=== PATIENT | male | born 1950 | race Caucasian/White ===

== ENCOUNTER 2018-05-11 16:51 | Emergency (ER) | payer MEDICARE ==
[~2018-05-11] VITALS: Ht 185.4 cm; Wt 117.9 kg
[2018-05-11 17:07] LABS: BASOPHILS ABSOLUTE AUTO 0.06 K/mm3 (0.00-0.23); BASOPHILS PERCENT AUTO 1 % (0-2); EOSINOPHILS PERCENT AUTO 0 % (0-6); Hematocrit 48.1 % (37.0-53.0); Hemoglobin 15.8 g/dL (13.5-17.5); IMMATURE GRAN ABSOLUTE AUTO 0.01 K/mm3 (0.00-0.10); IMMATURE GRAN PERCENT AUTO 0 % (0-1); LYMPHOCYTES ABSOLUTE AUTO 1.98 K/mm3 (0.84-5.20); LYMPHOCYTES PERCENT AUTO 27 % (21-46); MONOCYTES ABSOLUTE AUTO 0.79 K/mm3 (0.16-1.47); MONOCYTES PERCENT AUTO 11 % (4-13); Mean Corpuscular HGB 30.9 pg (26.0-34.0); Mean Corpuscular HGB Conc 32.8 g/dL (31.5-36.5); Mean Corpuscular Volume 94 fL (80-100); Mean Platelet Volume 11.7 fL (9.1-12.4); NEUTROPHILS ABSOLUTE AUTO 4.48 K/mm3 (1.96-9.15); NEUTROPHILS PERCENT AUTO 61 % (41-73); Platelet Count 190 K/mm3 (150-400); RDW Coefficient Variation 13.7 % (11.7-14.2); RDW Standard Deviation 47.3 fL (35.1-46.3); Red Blood Cell Count 5.12 M/mm3 (4.30-5.90); White Blood Cell Count 7.32 K/mm3 (4.00-11.30)
[2018-05-11 17:26] LABS: Alanine Aminotransfer (ALT/SGP 46 U/L (12-78); Albumin, Blood 4.1 g/dL (3.4-5.0); Alk Phos 58 U/L (50-136); Anion Gap 6 mmol/L (6-16); Aspartate Aminotrans (AST/SGOT 31 U/L (12-37); Bilirubin, Total 1.1 mg/dL (0.1-1.0); Blood Urea Nitrogen 17 mg/dL (8-24); CO2, Blood 26 mmol/L (21-32); Calcium, Blood 9.5 mg/dL (8.5-10.1); Chloride, Blood 109 mmol/L (98-108); Creatinine, Blood 1.13 mg/dL (0.60-1.20); Glomerular Filtration Rate >60 (60-); Glucose, Blood 95 mg/dL (70-99); Potassium, Blood 4.3 mmol/L (3.5-5.5); Sodium, Blood 141 mmol/L (136-145); Total Protein, Blood 8.1 g/dL (6.4-8.2)
[2018-05-11 17:35] LABS: Calcium, Ionized (POC) 1.15 mmol/L (1.10-1.46); Chloride (POC) 109 mmol/L (98-108); Glucose (ISTAT POC) 93 mg/dL (70-99); Hemoglobin (POC) 14.3 g/dL (13.5-17.5); Potassium (POC) 4.2 mmol/L (3.5-5.5); Sodium (POC) 144 mmol/L (135-148); Total CO2 (POC) 24 mmol/L (21-32)
[2018-05-11] MEDS ORDERED: BELBUCA600 MCG PO (17:40)
[2018-05-11] MEDS ORDERED: Oxycodone HCl20 M1 PO (17:44)
[2018-05-11] MEDS ORDERED: METO50ER PO (17:44)
[2018-05-11] MEDS ORDERED: Janumet 50-1,01 EACH PO (17:44)
[2018-05-11] MEDS ORDERED: TAMS.4ER PO (17:45)
[2018-05-11] MEDS ORDERED: ALBU90OI61 (17:45)
[2018-05-11] MEDS ORDERED: PROCHAMBER1 EACH (17:45)
== END 2018-05-11 19:48 | disposition home or self-care (01) ==
LOC: ER 16:51
PROVIDERS: Emergency Medicine; Internal Medicine
DX: I48.2 Chronic atrial fibrillation (principal); F11.23 Opioid dependence with withdrawal; Z91.14 Patient's other noncompliance with medication regimen; I10 Essential (primary) hypertension; E11.9 Type 2 diabetes mellitus without complications; Z79.899 Other long term (current) drug therapy; Z79.51 Long term (current) use of inhaled steroids; Z86.711 Personal history of pulmonary embolism; Z86.718 Personal history of other venous thrombosis and embolism
CPT/HCPCS: 71045; 71260; 80047; 80053; 83880; 84484; 85014; 85025; 93005; 93010; 96374; 99284-25; J1170; Q9967

== ENCOUNTER 2018-08-29 18:18 | Emergency (ER) | payer MEDICARE ==
[~2018-08-29] VITALS: Ht 180.3 cm; Wt 117.9 kg
[~2018-08-29 18:18] MED LIST: ALBU90OI61; BELBUCA600 MCG PO; Janumet 50-1,01 EACH PO; METO50ER PO; Oxycodone HCl20 M1 PO; PROCHAMBER1 EACH; TAMS.4ER PO
== END 2018-08-29 20:08 | disposition home or self-care (01) ==
LOC: ER 18:18
DX: S09.90XA Unspecified injury of head, initial encounter (principal); S20.211A Contusion of right front wall of thorax, initial encounter; I10 Essential (primary) hypertension; E11.9 Type 2 diabetes mellitus without complications; I48.91 Unspecified atrial fibrillation; Z87.891 Personal history of nicotine dependence; Z79.899 Other long term (current) drug therapy; W18.30XA Fall on same level, unspecified, initial encounter
CPT/HCPCS: 70450; 71101; 93005; 93010; 99284-25

== ENCOUNTER 2018-09-20 13:28 | Emergency (ER) | payer MEDICARE ==
[~2018-09-20] VITALS: Ht 182.9 cm; Wt 125.2 kg
[2018-09-20 14:33] LABS: BASOPHILS ABSOLUTE AUTO 0.04 K/mm3 (0.00-0.23); BASOPHILS PERCENT AUTO 1 % (0-2); EOSINOPHILS PERCENT AUTO 0 % (0-6); Hematocrit 42.4 % (37.0-53.0); Hemoglobin 13.6 g/dL (13.5-17.5); IMMATURE GRAN ABSOLUTE AUTO 0.02 K/mm3 (0.00-0.10); IMMATURE GRAN PERCENT AUTO 0 % (0-1); LYMPHOCYTES ABSOLUTE AUTO 1.61 K/mm3 (0.84-5.20); LYMPHOCYTES PERCENT AUTO 23 % (21-46); MONOCYTES ABSOLUTE AUTO 0.76 K/mm3 (0.16-1.47); MONOCYTES PERCENT AUTO 11 % (4-13); Mean Corpuscular HGB 30.6 pg (26.0-34.0); Mean Corpuscular HGB Conc 32.1 g/dL (31.5-36.5); Mean Corpuscular Volume 96 fL (80-100); Mean Platelet Volume 11.5 fL (9.1-12.4); NEUTROPHILS ABSOLUTE AUTO 4.65 K/mm3 (1.96-9.15); NEUTROPHILS PERCENT AUTO 66 % (41-73); Platelet Count 206 K/mm3 (150-400); RDW Coefficient Variation 15.9 % (11.7-14.2); RDW Standard Deviation 55.5 fL (35.1-46.3); Red Blood Cell Count 4.44 M/mm3 (4.30-5.90); White Blood Cell Count 7.08 K/mm3 (4.00-11.30)
[2018-09-20 14:46] LABS: Alanine Aminotransfer (ALT/SGP 31 U/L (12-78); Albumin, Blood 3.3 g/dL (3.4-5.0); Albumin/Globulin Ratio 0.9 (0.8-1.8); Alk Phos 75 U/L (50-136); Anion Gap 6 mmol/L (6-16); Aspartate Aminotrans (AST/SGOT 20 U/L (12-37); Bilirubin, Total 0.8 mg/dL (0.1-1.0); Blood Urea Nitrogen 26 mg/dL (8-24); Bun/Creatinine Ratio 25.2 (12.0-20.0); CO2, Blood 28 mmol/L (21-32); Calcium, Blood 8.5 mg/dL (8.5-10.1); Chloride, Blood 103 mmol/L (98-108); Creatinine, Blood 1.03 mg/dL (0.60-1.20); Globulin, Blood 3.6 g/dL (2.2-4.0); Glomerular Filtration Rate >60 (60-); Glucose, Blood 98 mg/dL (70-99); Potassium, Blood 4.5 mmol/L (3.5-5.5); Sodium, Blood 137 mmol/L (136-145); Total Protein, Blood 6.9 g/dL (6.4-8.2); Troponin I <0.015 ng/mL (0.000-0.040)
[2018-09-20] MEDS ORDERED: DULO60 PO (14:56)
[2018-09-20] MEDS ORDERED: XARELTO20 MG PO (14:57)
[2018-09-20] MEDS ORDERED: LISI5 PO (14:58)
[2018-09-20] MEDS ORDERED: BUPRENORPHINE HC8 MG SL (14:59)
[2018-09-20] MEDS ORDERED: XARELTO15 MG PO (17:34)
[2018-09-20] MEDS ORDERED: Ultram50 MG PO (17:34)
== END 2018-09-20 17:43 | disposition home or self-care (01) ==
LOC: ER 13:28
PROVIDERS: Emergency Medicine
DX: S22.43XA Multiple fractures of ribs, bilateral, initial encounter for closed fracture (principal); I26.99 Other pulmonary embolism without acute cor pulmonale; I48.91 Unspecified atrial fibrillation; Z87.891 Personal history of nicotine dependence; Z79.899 Other long term (current) drug therapy
CPT/HCPCS: 71260; 80053; 83690; 83880; 84484; 85025; 85379; 93005; 93010; 96374-59; 99284-25; J1885; Q9967

== ENCOUNTER → 2018-09-21 | Outpatient (CLI) | payer MEDICARE ==
[~2018-09-21] MED LIST changes: +BUPRENORPHINE HC8 MG SL; +DULO60 PO; +LISI5 PO; +Ultram50 MG PO; +XARELTO15 MG PO; +XARELTO20 MG PO
== END ==
LOC: LAB SHORT 12:58 → LAB EV 12:58
DX: R07.9 Chest pain, unspecified (principal)
CPT/HCPCS: 84484

== ENCOUNTER → 2018-09-23 | Outpatient (CLI) | payer MEDICARE ==
[2018-09-23 09:20] LABS: BASOPHILS ABSOLUTE AUTO 0.03 K/mm3 (0.00-0.23); BASOPHILS PERCENT AUTO 1 % (0-2); EOSINOPHILS ABSOLUTE AUTO 0.01 K/mm3 (0.00-0.68); EOSINOPHILS PERCENT AUTO 0 % (0-6); Hematocrit 41.1 % (37.0-53.0); Hemoglobin 13.7 g/dL (13.5-17.5); IMMATURE GRAN ABSOLUTE AUTO 0.02 K/mm3 (0.00-0.10); IMMATURE GRAN PERCENT AUTO 0 % (0-1); LYMPHOCYTES ABSOLUTE AUTO 1.34 K/mm3 (0.84-5.20); LYMPHOCYTES PERCENT AUTO 21 % (21-46); MONOCYTES ABSOLUTE AUTO 0.65 K/mm3 (0.16-1.47); MONOCYTES PERCENT AUTO 10 % (4-13); Mean Corpuscular HGB 30.8 pg (26.0-34.0); Mean Corpuscular HGB Conc 33.3 g/dL (31.5-36.5); Mean Platelet Volume 11.9 fL (9.1-12.4); NEUTROPHILS ABSOLUTE AUTO 4.46 K/mm3 (1.96-9.15); NEUTROPHILS PERCENT AUTO 68 % (41-73); Platelet Count 188 K/mm3 (150-400); RDW Coefficient Variation 16.3 % (11.7-14.2); RDW Standard Deviation 55.4 fL (35.1-46.3); Red Blood Cell Count 4.45 M/mm3 (4.30-5.90); White Blood Cell Count 6.51 K/mm3 (4.00-11.30)
[2018-09-23 09:21] LABS: Mean Corpuscular Volume 92 fL (80-100)
[2018-09-23 09:32] LABS: Alanine Aminotransfer (ALT/SGP 22 U/L (12-78); Albumin, Blood 3.3 g/dL (3.4-5.0); Albumin/Globulin Ratio 0.9 (0.8-1.8); Alk Phos 76 U/L (40-126); Anion Gap 6 mmol/L (6-16); Aspartate Aminotrans (AST/SGOT 16 U/L (12-37); Bilirubin, Total 1.1 mg/dL (0.1-1.0); Blood Urea Nitrogen 21 mg/dL (8-24); Bun/Creatinine Ratio 19.8 (12.0-20.0); CO2, Blood 28 mmol/L (21-32); Calcium, Blood 8.4 mg/dL (8.5-10.1); Chloride, Blood 103 mmol/L (98-108); Creatinine, Blood 1.06 mg/dL (0.60-1.20); Globulin, Blood 3.7 g/dL (2.2-4.0); Glomerular Filtration Rate >60 (60-); Glucose, Blood 108 mg/dL (70-99); Sodium, Blood 137 mmol/L (136-145); Thyroid Stimulating Hormone 2.211 uIU/mL (0.360-4.800)
== END | disposition home or self-care (01) ==
LOC: LAB SHORT 09:08 → LAB EV 09:08
PROVIDERS: Physician Assistant Medical
DX: R18.8 Other ascites (principal); R53.83 Other fatigue
CPT/HCPCS: 80053; 83880; 84443; 85025

== ENCOUNTER 2020-03-05 13:42 | Emergency (ER) | payer MEDICARE, OTHER ==
[~2020-03-05] VITALS: Ht 182.9 cm; Wt 113.4 kg
[2020-03-05] MEDS ORDERED: ACETAMINOPHEN500 MG PO (14:42)
[2020-03-05] MEDS ORDERED: Voltaren100 GM TOP (14:42)
[2020-03-05] MEDS ORDERED: Cyclobenzaprine5 MG PO (14:42)
== END 2020-03-05 14:54 | disposition home or self-care (01) ==
LOC: ER 13:42
DX: M54.5 Low back pain (principal); G89.29 Other chronic pain; I48.91 Unspecified atrial fibrillation; I10 Essential (primary) hypertension; Z86.718 Personal history of other venous thrombosis and embolism; E11.9 Type 2 diabetes mellitus without complications; Z79.01 Long term (current) use of anticoagulants; Z87.891 Personal history of nicotine dependence
CPT/HCPCS: 96372; 99283-25; J1885

== ENCOUNTER 2020-04-20 08:09 | Emergency (ER) | payer MEDICARE, OTHER ==
[~2020-04-20] VITALS: Ht 182.9 cm; Wt 113.4 kg
[~2020-04-20 08:09] MED LIST changes: +ACETAMINOPHEN500 MG PO; +Cyclobenzaprine5 MG PO; +Voltaren100 GM TOP
[2020-04-20] MEDS ORDERED: LOSA25 (08:24)
[2020-04-20] MEDS ORDERED: SAXA2.5T (08:24)
== END 2020-04-20 09:14 | disposition home or self-care (01) ==
LOC: ER 08:09
DX: H00.14 Chalazion left upper eyelid (principal); I48.91 Unspecified atrial fibrillation; I10 Essential (primary) hypertension; E11.9 Type 2 diabetes mellitus without complications; Z86.718 Personal history of other venous thrombosis and embolism; Z79.84 Long term (current) use of oral hypoglycemic drugs; Z79.899 Other long term (current) drug therapy
CPT/HCPCS: 99283

== ENCOUNTER 2021-04-08 09:11 | Inpatient (IN) | payer OTHER ==
[~2021-04-08] VITALS: Ht 182.9 cm; Wt 108.4 kg
[~2021-04-08 09:11] MED LIST changes: +LOSA25; +SAXA2.5T
[2021-04-08 10:10] LABS: Calcium, Ionized (POC) 1.16 mmol/L (1.10-1.46); Chloride (POC) 103 mmol/L (98-108); Creatinine (POC) 0.8 mg/dL (0.8-1.3); Glucose (ISTAT POC) 128 mg/dL (70-99); Hemoglobin (POC) 16.3 g/dL (13.5-17.5); Potassium (POC) 3.8 mmol/L (3.5-5.5); Sodium (POC) 139 mmol/L (135-148); Total CO2 (POC) 24 mmol/L (21-32)
[2021-04-08 10:18] LABS: BASOPHILS ABSOLUTE AUTO 0.03 K/mm3 (0.00-0.23); BASOPHILS PERCENT AUTO 1 % (0-2); EOSINOPHILS PERCENT AUTO 0 % (0-6); Hematocrit 45.2 % (37.0-53.0); Hemoglobin 15.5 g/dL (13.5-17.5); IMMATURE GRAN ABSOLUTE AUTO 0.01 K/mm3 (0.00-0.10); IMMATURE GRAN PERCENT AUTO 0 % (0-1); LYMPHOCYTES ABSOLUTE AUTO 0.94 K/mm3 (0.84-5.20); LYMPHOCYTES PERCENT AUTO 24 % (21-46); MONOCYTES ABSOLUTE AUTO 0.41 K/mm3 (0.16-1.47); MONOCYTES PERCENT AUTO 11 % (4-13); Mean Corpuscular HGB 30.9 pg (26.0-34.0); Mean Corpuscular HGB Conc 34.3 g/dL (31.5-36.5); Mean Corpuscular Volume 90 fL (80-100); Mean Platelet Volume 11.5 fL (9.1-12.4); NEUTROPHILS ABSOLUTE AUTO 2.47 K/mm3 (1.96-9.15); NEUTROPHILS PERCENT AUTO 64 % (41-73); Platelet Count 174 K/mm3 (150-400); RDW Standard Deviation 39.7 fL (35.1-46.3); Red Blood Cell Count 5.02 M/mm3 (4.30-5.90); White Blood Cell Count 3.86 K/mm3 (4.00-11.30)
[2021-04-08] MEDS ORDERED: Hydroxyzine HCl25 MG (10:21)
[2021-04-08] MEDS ORDERED: TAMSULOSIN HCL0.4 M1 PO (10:21)
[2021-04-08] MEDS ORDERED: LOSA50 PO (10:22)
[2021-04-08] MEDS ORDERED: TADALAFIL20 M1 PO (10:22)
[2021-04-08] MEDS ORDERED: TRAZ100 PO (10:22)
[2021-04-08] MEDS ORDERED: RESTORIL PO (10:22)
[2021-04-08] MEDS ORDERED: ESZOPICLONE2 MG PO (10:23)
[2021-04-08 10:26] LABS: International Normalized Ratio 1.01; Prothrombin Time Results 10.9 Sec (9.7-11.5)
[2021-04-08 10:31] LABS: Alanine Aminotransfer (ALT/SGP 37 U/L (12-78); Albumin, Blood 4.1 g/dL (3.4-5.0); Albumin/Globulin Ratio 1.2 (0.8-1.8); Alk Phos 62 U/L (50-136); Anion Gap 4 mmol/L (6-16); Aspartate Aminotrans (AST/SGOT 23 U/L (12-37); Bilirubin, Total 0.4 mg/dL (0.1-1.0); Blood Urea Nitrogen 15 mg/dL (8-24); Bun/Creatinine Ratio 19.9 (12.0-20.0); CO2, Blood 25 mmol/L (21-32); Calcium, Blood 9.1 mg/dL (8.5-10.1); Chloride, Blood 108 mmol/L (98-108); Creatinine, Blood 0.76 mg/dL (0.60-1.20); Globulin, Blood 3.5 g/dL (2.2-4.0); Glomerular Filtration Rate >60 (60-); Glucose, Blood 128 mg/dL (70-99); Potassium, Blood 3.9 mmol/L (3.5-5.5); Sodium, Blood 137 mmol/L (136-145); Total Protein, Blood 7.6 g/dL (6.4-8.2); Troponin I <0.015 ng/mL (0.000-0.040)
[2021-04-08 11:20] LABS: SARS-Cov-2 (COVID-19) PCR, MMC NEGATIVE (NEGATIVE)
--- NOTE | 2021-04-08 13:38 | NUR ---
PT ARRIVED TO UNIT AT APROX 1305 FROM [facility] [place] [facility] DX ANGIOGRAM WITH NO STENT PLACEMENT. TR BAND TO R RADIAL SITE, 2CC RMOVED ON ARRIVAL, 5 MIN LATER 2 MORE CC AIR REMOVED AND BLOOD STARTED TO LEAK FROM SITE. 4 CC AIR PLACED BACK INTO BALLOON, BLEEDING STOPPED. 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 VSS ON ARRIVAL TO UNIT.
[2021-04-08 14:03] LABS: International Normalized Ratio 1.06; Prothrombin Time Results 11.4 Sec (9.7-11.5)
--- NOTE | 2021-04-09 03:15 | NUR ---
SHIFT SUMMARY: NSTEMI - NO STENT PLACEMENT PATIENT IS ALERT AND ORIENTED X4. VS ARE WNL AND IS ON RA. PATIENT HAS TR BAND TO RIGHT RADIAL SITE. THE TR BAND IS C/D/I. HE IS ABLE TO WIGGLE FINGERS AND TOES WHEN ASKED. HE HAS AMBULATED TO THE BATHROOM AND DENIES FEELING DIZZY. PATIENT DENIES PAIN TO THE RIGHT RADIAL BUT MORE SO HIS CHRONIC BACK PAIN. PATIENT CALLS APPROPRIATELY. HE IS TOLERATING PO INTAKE AND IS VOIDING. CALL LIGHT WITHIN REACH. HE IS CURRENTLY LAYING IN BED RESTING. THE PLAN IS TO DISCHARGE HOME LATER TODAY.
[2021-04-09 06:32] LABS: BASOPHILS ABSOLUTE AUTO 0.03 K/mm3 (0.00-0.23); BASOPHILS PERCENT AUTO 1 % (0-2); EOSINOPHILS ABSOLUTE AUTO 0.14 K/mm3 (0.00-0.68); EOSINOPHILS PERCENT AUTO 4 % (0-6); Hematocrit 45.5 % (37.0-53.0); Hemoglobin 15.3 g/dL (13.5-17.5); IMMATURE GRAN ABSOLUTE AUTO 0.01 K/mm3 (0.00-0.10); IMMATURE GRAN PERCENT AUTO 0 % (0-1); LYMPHOCYTES ABSOLUTE AUTO 0.85 K/mm3 (0.84-5.20); LYMPHOCYTES PERCENT AUTO 22 % (21-46); MONOCYTES ABSOLUTE AUTO 0.43 K/mm3 (0.16-1.47); MONOCYTES PERCENT AUTO 11 % (4-13); Mean Corpuscular HGB 30.7 pg (26.0-34.0); Mean Corpuscular HGB Conc 33.6 g/dL (31.5-36.5); Mean Corpuscular Volume 91 fL (80-100); Mean Platelet Volume 11.5 fL (9.1-12.4); NEUTROPHILS ABSOLUTE AUTO 2.46 K/mm3 (1.96-9.15); NEUTROPHILS PERCENT AUTO 63 % (41-73); Platelet Count 176 K/mm3 (150-400); RDW Coefficient Variation 12.1 % (11.7-14.2); RDW Standard Deviation 40.9 fL (35.1-46.3); Red Blood Cell Count 4.98 M/mm3 (4.30-5.90); White Blood Cell Count 3.92 K/mm3 (4.00-11.30)
[2021-04-09 06:59] LABS: Anion Gap 5 mmol/L (6-16); Blood Urea Nitrogen 13 mg/dL (8-24); Bun/Creatinine Ratio 15.8 (12.0-20.0); CHOL/HDL RATIO 3.1; CO2, Blood 27 mmol/L (21-32); Calcium, Blood 8.8 mg/dL (8.5-10.1); Chloride, Blood 106 mmol/L (98-108); Cholesterol 173 mg/dL (50-200); Creatinine, Blood 0.82 mg/dL (0.60-1.20); Glomerular Filtration Rate >60 (60-); Glucose, Blood 119 mg/dL (70-99); HDL Cholesterol 55 mg/dL (>39); LDL/HDL RATIO 1.6; Low Density Lipoprotein Chol 90 mg/dL (0-110); Potassium, Blood 3.9 mmol/L (3.5-5.5); Sodium, Blood 138 mmol/L (136-145); Triglycerides 141 mg/dL (30-160); Very Low Density Lipoprot Chol 28 mg/dL (6-32)
[2021-04-09] MEDS ORDERED: HYDCHL25 PO (12:17)
[2021-04-09] MEDS ORDERED: PANT40 PO (12:18)
[2021-04-09] MEDS ORDERED: METO25ER PO (12:18)
[2021-04-09] MEDS ORDERED: POTA20LUD PO (12:19)
[2021-04-09] MEDS ORDERED: ELIQUIS5 M2 PO (12:19)
--- NOTE | 2021-04-09 12:59 | NUR ---
DISCHARGE: PACKET PRINTED AND PT EDUCATED. IV DC'D WNL. MEDS FAXED TO [facility] BY [facility]. PT DENIED NEED FOR WHEELCHAIR AND WALKED OFF UNIT AT [place].
== END 2021-04-09 12:42 | disposition home or self-care (01) | DRG 282 ==
LOC: ER 09:11 → PCU 10:02 → SURS 13:34
PROVIDERS: Emergency Medicine; ADMIT Internal Medicine Cardiovascular Disease
PROC: 4A023N7 Measurement of Cardiac Sampling and Pressure, Left Heart, Percutaneous Approach (ICD-10-PCS; principal; 2021-04-08)
PROC: B2111ZZ Fluoroscopy of Multiple Coronary Arteries using Low Osmolar Contrast (ICD-10-PCS; 2021-04-08)
DX: I21.09 ST elevation (STEMI) myocardial infarction involving other coronary artery of anterior wall (principal); Z20.822 Contact with and (suspected) exposure to COVID-19; I48.91 Unspecified atrial fibrillation; I11.0 Hypertensive heart disease with heart failure; I50.9 Heart failure, unspecified; N40.0 Benign prostatic hyperplasia without lower urinary tract symptoms; E11.9 Type 2 diabetes mellitus without complications; M54.9 Dorsalgia, unspecified; G89.4 Chronic pain syndrome; Z86.711 Personal history of pulmonary embolism; Z86.718 Personal history of other venous thrombosis and embolism; Z87.891 Personal history of nicotine dependence; Z79.899 Other long term (current) drug therapy; Z79.01 Long term (current) use of anticoagulants; Z79.1 Long term (current) use of non-steroidal anti-inflammatories (NSAID)
CPT/HCPCS: 36415; 71275; 76937; 80047; 80048; 80053; 80061; 83036; 84484; 85014; 85025; 85347; 85610; 85730; 93005; 93010; 93306; 93458; 93567; 99152; 99153; 99285-25; A9270; C1769; C1887; C1894; J1644; J1650; J2250; J2405; J3010; J7030; J7050; Q9967; U0004

== ENCOUNTER 2022-07-10 08:39 | Day surgery (SDC) | payer OTHER ==
[~2022-07-10] VITALS: Ht 182.9 cm; Wt 113.9 kg
[~2022-07-10 08:39] MED LIST changes: +AMLO10 PO; +CYCL10 PO; +ELIQUIS5 M2 PO; +ESZOPICLONE2 MG PO; +FISH OIL 1,2001 EAC7 PO; +HYDCHL25 PO; +Hydroxyzine HCl25 MG PO; +LOSA50 PO; +MELATONIN 5 MG1 EACH PO; +MELO7.5 PO; +METO25ER PO; +MULVITA PO; +OMEP20ER PO; +PANT40 PO; +POTA20LUD PO; +RESTORIL PO; +TADALAFIL20 M1 PO; +TAMSULOSIN HCL0.4 M1 PO; +TOCO1000 PO; +TRAZ50 PO; +TURMERIC CURCU1 EACH PO; +VITAMIN E100 UNI1 PO; +Vitamin D1000 UNI1 PO; +ZINC50 M3 PO
[2022-07-10] MEDS ORDERED: Norco 5-325 Ta1 EACH PO (09:18)
--- NOTE | 2022-07-10 09:39 | NUR ---
Ambulatory in Day Surgery. History, Chart, Medications and Allergies reviewed before start of procedure. Lungs clear T/O to Auscultation. Patient confirms NPO status and agrees with scheduled surgery. Patient States Post-Procedure ride home has been arranged WITH DAUGHTER IN [facility].
--- NOTE | 2022-07-10 10:22 | NUR ---
07/10/22 1022 Donato Ignacio MONITOR INTACT WITH CONTINUOUS PULSE OXIMETRY AND INTERMITTENT BP.
--- NOTE | 2022-07-10 11:19 | NUR ---
Patient up to Ambulate independently. Gait steady. Discharge instructions reviewed with patient. Patient verbalizes understanding. Copy given to patient to take home. Lungs clear T/O to Auscultation. Discharged via wheelchair to private car for ride home.
== END 2022-07-10 11:18 | disposition home or self-care (01) ==
LOC: ORSCMMR 08:39 → ORD 10:15 → ORSCMMR 10:15
PROVIDERS: Internal Medicine Gastroenterology
PROC: 0DBL8ZX Excision of Transverse Colon, Via Natural or Artificial Opening Endoscopic, Diagnostic (ICD-10-PCS; principal; 2022-07-10 10:15)
DX: Z12.11 Encounter for screening for malignant neoplasm of colon (principal); Z86.010 Personal history of colon polyps; D12.3 Benign neoplasm of transverse colon; K64.8 Other hemorrhoids; I10 Essential (primary) hypertension; G47.33 Obstructive sleep apnea (adult) (pediatric); K21.9 Gastro-esophageal reflux disease without esophagitis; Z79.899 Other long term (current) drug therapy; E66.9 Obesity, unspecified; Z68.34 Body mass index [BMI] 34.0-34.9, adult; Z86.718 Personal history of other venous thrombosis and embolism
CPT/HCPCS: 82947; 88305; J2001; J2704; J7120

== ENCOUNTER 2023-01-01 11:01 | Day surgery (SDC) | payer OTHER ==
[~2023-01-01] VITALS: Ht 182.9 cm; Wt 111.6 kg
[2023-01-01] VITALS (11 sets, daily range): BP systolic 122–155; BP diastolic 71–95
[~2023-01-01 11:01] MED LIST changes: +Norco 10-325 T1 EACH PO; +Norco 5-325 Ta1 EACH PO
[2023-01-01] MEDS ORDERED: ATOR10 PO (12:15)
--- NOTE | 2023-01-01 12:46 | NUR ---
History, Chart, Medications and Allergies reviewed before start of procedure.LUNGS CLEAR, PRE OP TEACHING DONE. UPPER DENTURES LABELED AND TAKEN TO PACU PRIOR TO GOING TO OR
--- NOTE | 2023-01-01 18:30 | NUR ---
ARRIVAL PATIENT TO ROOM 215 VIA BED. VSS, ON 2L O2 TO MAINTAIN SATS >92%. LUNGS CLEAR. JESSEE WRAP & POLAR PACK TO LEFT KNEE, C/D/I. PATIENT REPORTS MODERATE PAIN TO KNEE, PLAN TO MEDICATE PER EMAR. PRIENTED TO ROOM & CALL LIGHT, IN REACH. WILL REPORT TO ONCOMING RN AT 1900.
[2023-01-02 00:10] VITALS: BP 131/74
[2023-01-02 03:41] VITALS: BP 134/75
[2023-01-02 05:12] LABS: BASOPHILS PERCENT AUTO 0 % (0-2); EOSINOPHILS PERCENT AUTO 0 % (0-6); Hematocrit 36.6 % (37.0-53.0); Hemoglobin 12.6 g/dL (13.5-17.5); IMMATURE GRAN ABSOLUTE AUTO 0.03 K/mm3 (0.00-0.10); IMMATURE GRAN PERCENT AUTO 0 % (0-1); LYMPHOCYTES PERCENT AUTO 7 % (21-46); MONOCYTES ABSOLUTE AUTO 0.31 K/mm3 (0.16-1.47); MONOCYTES PERCENT AUTO 4 % (4-13); Mean Corpuscular HGB 30.7 pg (26.0-34.0); Mean Corpuscular HGB Conc 34.4 g/dL (31.5-36.5); Mean Corpuscular Volume 89 fL (80-100); Mean Platelet Volume 11.1 fL (9.1-12.4); NEUTROPHILS ABSOLUTE AUTO 7.98 K/mm3 (1.96-9.15); NEUTROPHILS PERCENT AUTO 90 % (41-73); Platelet Count 191 K/mm3 (150-400); RDW Coefficient Variation 13.4 % (11.7-14.2); RDW Standard Deviation 44.2 fL (35.1-46.3); White Blood Cell Count 8.92 K/mm3 (4.00-11.30)
[2023-01-02 05:33] LABS: Bun/Creatinine Ratio 18.1 (12.0-20.0); Calcium, Blood 8.6 mg/dL (8.5-10.1); Creatinine, Blood 0.88 mg/dL (0.60-1.20); Magnesium, Blood 1.9 mg/dL (1.6-2.4); Potassium, Blood 4.2 mmol/L (3.5-5.5)
--- NOTE | 2023-01-02 05:34 | NUR ---
SHIFT SUMMARY: POD1 TKA, C/D/I, DENIES N/T, PEDAL PULSES INTACT. VSS, CPAP IN PLACE, CONTINUOUS BIOX. VOIDING W/OUT DIFFICULTY AT BEDSIDE, TOLERATING PO INTAKE, DENIES N/V. APPROP USE OF CALL LIGHT. PT EVAL AND TREAT, PLANS FOR DC TODAY.
[2023-01-02 07:38] VITALS: BP 144/68
[2023-01-02 07:49] VITALS: BP 135/70
--- NOTE | 2023-01-02 08:00 | NUR ---
DR BRIONES AT BEDSIDE, CHANGED DRESSING TO [employer]. EDUCATED PATIENT ON DRESSING CHANGES AND WOUND CARE.
[2023-01-02] MEDS ORDERED: ASPI81CH PO (09:37)
[2023-01-02] MEDS ORDERED: OXAYDO5 M2 PO (09:37)
[2023-01-02] MEDS ORDERED: SULTRIDS PO (09:38)
[2023-01-02] MEDS ORDERED: PROM25 PO (09:38)
--- NOTE | 2023-01-02 10:54 | NUR ---
JOANAGE PT IS A/O X4. UP WITH 1P ASSIST WITH GB AND FWW. WBAT. TOLERATING PO INTAKE AND VOIDING APPROPRIATELY. DENIES N/T AT THIS TIME. DISCHARGE TEAHCING AND WOUND CARE INSTRUCTIONS WERE PROVIDED TO THE PATIENT. THE PATIENT WAS RECEPTIVE TO DISCHARGE TEACHING AND EXHIBITED KNOWLEDGE OF INSTRUCTIONS. THE PT CALLED FOR HIS RIDE AND STATED THAT SHE (PT'S DIL) MAY NOT BE ABLE TO TRANSPORT HIM UNTIL 1230. THE PATIENT IS IN HIS RECLINER W/ CALL LIGHT IN REACH. WILL CONTINUE TO CHECK IN WITH THE PATIENT ABOUT TRANSPORTATION STATUS.
--- NOTE | 2023-01-02 12:03 | NUR ---
PATIENT ESCORTED OUT VIA W/C
== END 2023-01-02 12:02 | disposition home or self-care (01) ==
LOC: ORSCMMR 11:01 → ORD 14:15 → ORSCMMR 14:15 → SURS 18:16 → ORSCMMR 01-02 12:02 → SURS 01-02 12:02
PROVIDERS: Orthopaedic Surgery
PROC: 0SRD0J9 Replacement of Left Knee Joint with Synthetic Substitute, Cemented, Open Approach (ICD-10-PCS; principal; 2023-01-01 14:15)
DX: M17.0 Bilateral primary osteoarthritis of knee (principal); I48.91 Unspecified atrial fibrillation; I25.2 Old myocardial infarction; I10 Essential (primary) hypertension; G47.33 Obstructive sleep apnea (adult) (pediatric); K76.0 Fatty (change of) liver, not elsewhere classified; K21.9 Gastro-esophageal reflux disease without esophagitis; E11.9 Type 2 diabetes mellitus without complications; Z86.718 Personal history of other venous thrombosis and embolism; F32.A Depression, unspecified; Z79.899 Other long term (current) drug therapy; E66.9 Obesity, unspecified; Z68.33 Body mass index [BMI] 33.0-33.9, adult
CPT/HCPCS: 36415; 73560-LT; 80048; 83735; 85025; 94660; 94762; 97110; 97161; 97530; A9270; C1713; C1776; J0171; J0690; J0735; J1100; J1885; J2250; J2405; J2704; J2795; J3010; J7120

== ENCOUNTER → 2023-01-16 | Outpatient (CLI) | payer OTHER ==
[~2023-01-16] MED LIST changes: +ASPI81CH PO; +ATOR10 PO; +OXAYDO5 M2 PO; +PROM25 PO; +SULTRIDS PO
== END | disposition home or self-care (01) ==
LOC: LAB 15:50 → LAB SHORT 15:50
DX: L02.416 Cutaneous abscess of left lower limb (principal)
CPT/HCPCS: 87070; 87075; 87077; 87186; 87205

== ENCOUNTER → 2023-04-10 | Outpatient (CLI) | payer OTHER ==
[2023-04-10 13:32] LABS: BASOPHILS ABSOLUTE AUTO 0.03 K/mm3 (0.00-0.23); BASOPHILS PERCENT AUTO 1 % (0-2); EOSINOPHILS PERCENT AUTO 3 % (0-6); Hematocrit 41.3 % (37.0-53.0); Hemoglobin 13.7 g/dL (13.5-17.5); IMMATURE GRAN PERCENT AUTO 0 % (0-1); LYMPHOCYTES ABSOLUTE AUTO 1.47 K/mm3 (0.84-5.20); LYMPHOCYTES PERCENT AUTO 38 % (21-46); MONOCYTES ABSOLUTE AUTO 0.43 K/mm3 (0.16-1.47); MONOCYTES PERCENT AUTO 11 % (4-13); Mean Corpuscular HGB 29.5 pg (26.0-34.0); Mean Corpuscular HGB Conc 33.2 g/dL (31.5-36.5); Mean Corpuscular Volume 89 fL (80-100); Mean Platelet Volume 11.1 fL (9.1-12.4); NEUTROPHILS ABSOLUTE AUTO 1.82 K/mm3 (1.96-9.15); NEUTROPHILS PERCENT AUTO 47 % (41-73); Platelet Count 206 K/mm3 (150-400); RDW Coefficient Variation 13.2 % (11.7-14.2); RDW Standard Deviation 43.2 fL (35.1-46.3); Red Blood Cell Count 4.64 M/mm3 (4.30-5.90); White Blood Cell Count 3.85 K/mm3 (4.00-11.30)
[2023-04-10 14:40] LABS: Albumin, Blood 3.7 g/dL (3.4-5.0); Bilirubin, Total 0.2 mg/dL (0.1-1.0); Calcium, Blood 8.9 mg/dL (8.5-10.1); Creatinine, Blood 0.83 mg/dL (0.60-1.20); Globulin, Blood 3.8 g/dL (2.2-4.0); Potassium, Blood 4.3 mmol/L (3.5-5.5); Thyroid Stimulating Hormone 0.998 uIU/mL (0.360-4.800); Total Protein, Blood 7.5 g/dL (6.4-8.2)
== END ==
LOC: LAB 10:42 → LAB SHORT 10:42
PROVIDERS: Nurse Practitioner Family
DX: I10 Essential (primary) hypertension (principal); D64.9 Anemia, unspecified; R53.83 Other fatigue; R73.03 Prediabetes
CPT/HCPCS: 80053; 83036; 84443; 85025

== ENCOUNTER 2023-05-21 08:34 | Day surgery (SDC) | payer OTHER ==
[~2023-05-21] VITALS: Ht 179 cm; Wt 117.7 kg
[2023-05-21] VITALS (23 sets, daily range): BP systolic 103–142; BP diastolic 51–84
[~2023-05-21 08:34] MED LIST changes: +ELIQUIS2.5 MG PO
[2023-05-21] MEDS ORDERED: ZOLP5 PO (09:56)
[2023-05-21] MEDS ORDERED: CATAPRES0.1 MG PO (09:56)
[2023-05-21] MEDS ORDERED: Hydroxyzine HCl50 MG (09:58)
--- NOTE | 2023-05-21 10:11 | NUR ---
History, Chart, Medications and Allergies reviewed before start of procedure. Ambulatory in Day Surgery. Pre-Op teaching done. Pt verbalizes understanding. Patient confirms NPO status and agrees with scheduled surgery. Patient reports completing Chlorhexadine shower X2 prior to admission to hospital. Surgical site prepped with 2% Chlorhexidine cloth wipe. Lungs clear T/O to Auscultation. Patient States Post-Procedure ride home has been arranged.
--- NOTE | 2023-05-21 11:05 | NUR ---
05/21/23 Meagan5 Sarah Dawson PRIOR TO ARRIVING IN THE OR PATIENT RECEIVED VANCO 1GM IV IN THE PREOP SETTING.
--- NOTE | 2023-05-21 14:26 | NUR ---
PATIENT ARRIVED TO THE FLOOR FROM PACU TODAY AT 1415. POD 0 RIGHT TOTAL KNEE PATIENT IS A&OX4. VS ARE WNL. PATIENT REPORTS 7/10 PAIN AND WAS JUST GIVEN 10MG OF OXY PO AT THIS TIME. HIS RIGHT KNEE HAS JESSEE WRAP THAT IS C/D/I. DENIES NUMBNESS OR TINGLING AND CAN MOVE ALL FINGERS AND TOES WHEN ASKED. HE IS TOLERATING PO INTAKE. IS AT BEDSIDE. PATIENT IS LAYING IN BED WITH CALL LIGHT IN REACH.
--- NOTE | 2023-05-21 15:15 | NUR ---
SHIFT SUMMARY: POD 0 RIGHT TOTAL KNEE PATIENT IS A&OX4. VS ARE WNL AND IS ON 2L NC AT THIS TIME. PAIN IS MANAGED WITH 2 OXY AND TORADOL IV. HIS RIGHT KNEE HAS AN JESSEE WRAP THAT IS C/D/I. DENIES NUMBNESS OR TINGLING. CAN MOVE ALL FINGERS AND TOES WHEN ASKED. POLAR PACK IS IN PLACE. HE IS TOLERATING PO INTAKE. PATIENT IS LAYING IN BED WITH CALL LIGHT IN REACH AND AT BEDSIDE.
[2023-05-22 04:37] VITALS: BP 145/85
[2023-05-22 05:11] LABS: BASOPHILS ABSOLUTE AUTO 0.02 K/mm3 (0.00-0.23); BASOPHILS PERCENT AUTO 0 % (0-2); EOSINOPHILS ABSOLUTE AUTO 0.18 K/mm3 (0.00-0.68); EOSINOPHILS PERCENT AUTO 4 % (0-6); Hematocrit 31.7 % (37.0-53.0); Hemoglobin 10.7 g/dL (13.5-17.5); IMMATURE GRAN ABSOLUTE AUTO 0.01 K/mm3 (0.00-0.10); IMMATURE GRAN PERCENT AUTO 0 % (0-1); LYMPHOCYTES ABSOLUTE AUTO 0.68 K/mm3 (0.84-5.20); LYMPHOCYTES PERCENT AUTO 13 % (21-46); MONOCYTES ABSOLUTE AUTO 0.53 K/mm3 (0.16-1.47); MONOCYTES PERCENT AUTO 10 % (4-13); Mean Corpuscular HGB 29.1 pg (26.0-34.0); Mean Corpuscular HGB Conc 33.8 g/dL (31.5-36.5); Mean Corpuscular Volume 86 fL (80-100); Mean Platelet Volume 11.5 fL (9.1-12.4); NEUTROPHILS ABSOLUTE AUTO 3.77 K/mm3 (1.96-9.15); NEUTROPHILS PERCENT AUTO 73 % (41-73); Platelet Count 143 K/mm3 (150-400); RDW Coefficient Variation 13.7 % (11.7-14.2); RDW Standard Deviation 43.5 fL (35.1-46.3); Red Blood Cell Count 3.68 M/mm3 (4.30-5.90); White Blood Cell Count 5.19 K/mm3 (4.00-11.30)
[2023-05-22 05:32] LABS: Bun/Creatinine Ratio 17.4 (12.0-20.0); Creatinine, Blood 0.92 mg/dL (0.60-1.20); Magnesium, Blood 1.7 mg/dL (1.6-2.4); Potassium, Blood 3.9 mmol/L (3.5-5.5)
--- NOTE | 2023-05-22 06:34 | NUR ---
SHIFT SUMMARY NOC. PT POD 1 FOR R TOTAL KNEE. PT TOLERATING PO INTAKE, AND VOIDING URINE. PT AMBULATED TO THE BATHROOM MULTIPLE TIMES THIS SHIFT. PT REDIRECTED TO KEEP POST OP KNEE STRAIGHT. PT FOUND BENDING KNEE MULTIPLE TIMES. PT MEDICATED FOR PAIN WITH OXY 10MG X3 AND DILAUDID X1. PAIN DIFFICULT TO CONTROL THIS SHIFT. PT PUT ON O2 N/C D/T DESAT TO 89% ON RA WHILE SLEEPING. SATS RECOVERED QUICK WITH DEEP BREATHS AND TEACHING. CALL LIGHT IN REACH AND PT CALLS APPROPRIATELY.
[2023-05-22 08:01] VITALS: BP 147/78
[2023-05-22] MEDS ORDERED: OXAYDO5 M1 PO (11:39)
[2023-05-22] MEDS ORDERED: PROMETHAZINE12.5 M1 PO (11:39)
[2023-05-22] MEDS ORDERED: SULTRIDS PO (11:39)
[2023-05-22 15:03] VITALS: BP 149/66
--- NOTE | 2023-05-22 15:45 | NUR ---
DISCHARGE SUMMARY POD1 R TKA, A/OX4, VSS, TOLERATING PO, PAIN MANAGED PER EMAR, AMBULATING, VOIDING, R KNEE DRESSING CHANGED AT BEDSIDE THIS AM BY MD, PROVIDED EXTRA DRESSINGS FOR DRESSING CHANGES. DISCUSSED DISCHARGE INSTRUCTIONS WITH BASIM ND HIS INCLUDING HOME CARE, MEDICATIONS, AND FOLLOW UP APPOINTMENTS. NO QUESTIONS AT THIS TIME, IV ACCESS REMOVED X2 PRIOR TO DC. ESCORTED OUT WITH ALL PERSONAL POSSESSIONS TO PRIVATE AUTO TO GO HOME.
== END 2023-05-22 15:42 | disposition home or self-care (01) ==
LOC: ORSCMMR 08:34 → ORD 10:45 → SURS 13:46 → ORSCMMR 05-22 15:42
PROVIDERS: Orthopaedic Surgery
PROC: 0SRC0J9 Replacement of Right Knee Joint with Synthetic Substitute, Cemented, Open Approach (ICD-10-PCS; principal; 2023-05-21 10:45)
DX: M17.11 Unilateral primary osteoarthritis, right knee (principal); Z96.652 Presence of left artificial knee joint; I48.91 Unspecified atrial fibrillation; Z79.01 Long term (current) use of anticoagulants; Z86.718 Personal history of other venous thrombosis and embolism; I10 Essential (primary) hypertension; G47.33 Obstructive sleep apnea (adult) (pediatric); F41.9 Anxiety disorder, unspecified; Z79.899 Other long term (current) drug therapy
CPT/HCPCS: 36415; 73560-RT; 80048; 82947; 83735; 85025; 97110; 97116; 97162; A9270; C1713; C1776; J0171; J0690; J0735; J1170; J1815; J1885; J2250; J2371; J2704; J2795; J3010; J3370; J7120

== ENCOUNTER → 2023-07-15 | Outpatient (CLI) | payer OTHER ==
[~2023-07-15] MED LIST changes: +CATAPRES0.1 MG PO; +Hydroxyzine HCl50 MG; +OXAYDO5 M1 PO; +PROMETHAZINE12.5 M1 PO; +ZOLP5 PO
[2023-07-15 19:35] LABS: Microalbumin, Random Urine 18.5 mg/L (0.000-20.000)
== END ==
LOC: LAB 17:07 → LAB SHORT 17:07
PROVIDERS: Nurse Practitioner Family
DX: E11.8 Type 2 diabetes mellitus with unspecified complications (principal)
CPT/HCPCS: 82043; 82570